=== PATIENT | female | born 1975 | race Caucasian/White ===

== ENCOUNTER 2016-11-14 11:35 | Emergency (ER) | payer SELFPAY ==
--- NOTE | 2016-11-18 16:46 | ER ---
ADMIT: 11/14/2016 RM/LOC: [facility] MR#: [id number] [address] [id number] , [place] [address] [place] [address] Emergency Room Report SEX: F AGE: 41 : 1975 DATE: 11/14/2016 ADDENDUM: Please see my T-sheet. This is a 41-year-old white female, who was having respiratory issues, called EMS and that they had brought her in by ambulance. She actually walked to the car at that time. By the time she got to the hallway on the bed, she went unresponsive and coded. We proceeded to code her for the next 90 minutes and finally called it at 1310 hours. Refer to the code sheet for the interventions that were obtained. The patient never responded unless we were actually doing CPR on her. She was hypoxic and we could never get her out of that even with intubation and rapid bagging. Her first blood gas on 15 l was 6.9 pH, pCO2 84, and PO2 46. We had done a second one on her and that did not really move whatsoever. At this time, the only history that we had was that besides being a wjm-gnyjeog-uobxjtvpv diabetic. She had been complaining of swelling of her left leg the last week or so, which her sister had told me and on exam, I confirmed this. She was also complaining of some chest pain. She had a bump in her troponin. She had a what appeared to be elevation in her inferior leads, which was late into the code, which could be insufficiency. The sister also said that she had complained of some chest pain too recently. At this time, we cannot rule out a massive PE, but the diagnosis would have to be cardiopulmonary resuscitation, unsuccessful. She did also had left leg edema, unknown etiology. She also when she coded, went into VFib, which we shocked her out of. OTHER DIAGNOSES: 1. Chest pain. 2. Ufb-wopircj-tbbfdhozb diabetes. I spoke with Dr. Robin. patient of Sona Olmedo, she will sign the certificate. TIME OF : 1310 hours. Benjamin Major MD/ willy JOB #: [id number] CC: Benjamin Major MD, Attending Physician Sona lOmedo, Family Physician
== END 2016-11-14 15:30 | disposition expired ==
LOC: ER 11:35
PROC: 5A12012 Performance of Cardiac Output, Single, Manual (ICD-10-PCS; principal; 2016-11-14)
PROC: 0BH17EZ Insertion of Endotracheal Airway into Trachea, Via Natural or Artificial Opening (ICD-10-PCS; principal; 2016-11-14)
DX: I46.9 Cardiac arrest, cause unspecified (principal); I49.01 Ventricular fibrillation; R60.0 Localized edema; E11.9 Type 2 diabetes mellitus without complications; I10 Essential (primary) hypertension; Z79.84 Long term (current) use of oral hypoglycemic drugs; Z79.899 Other long term (current) drug therapy